=== PATIENT | male | born 1960 | race Two or more races ===

== ENCOUNTER → 2023-11-16 | Outpatient (CLI) | payer MEDICARE, MEDICAID, SELFPAY | END | disposition home or self-care (01) | PROVIDERS: PCP Family Medicine; Referring Provider Family Medicine; Visit Provider Family Medicine | DX: Z20.1 Contact with and (suspected) exposure to tuberculosis (principal) ==

== ENCOUNTER → 2024-04-09 | Outpatient (CLI) | payer MEDICARE, MEDICAID, SELFPAY ==
--- NOTE | 2024-04-09 12:30 | XR_ITS ---
Examination: Abdomen sonogram, complete Date and time of exam: April 09, 2024 1319 hrs. Indications: Abdominal pain beginning 3 weeks ago. Technique: Multiple real-time grayscale transabdominal sonographic images of the abdomen have been obtained. Findings: Normal gallbladder Normal common bile duct 0.6 cm no stones Pancreatic head 2.8 cm Mid and distal aorta visualized not enlarged Fatty liver 14.2 cm no focal liver lesions Normal hepatopedal portal venous flow IVC obscured by bowel gas Right kidney 12.5 x 6.5 x 6.1 cm cortex 2.3 cm Left kidney 12.5 x 2.9 x 5.3 cm cortex 2.5 cm Moderate bilateral renal parenchymal scar reformation Lobulation versus renal mass in the mid to lower pole left kidney 3.5 x 3.4 cm Spleen 10.2 cm Impression: Normal gallbladder Negative for common bile duct stones Findings liver Recommend CT scan abdomen kidneys post intravenous contrast to exclude mass in the mid to lower pole left kidney
== END | disposition home or self-care (01) ==
LOC: CDIM 12:44
PROVIDERS: PCP Family Medicine; Referring Provider Family Medicine; Visit Provider Family Medicine
DX: N28.89 Other specified disorders of kidney and ureter (principal)
CPT/HCPCS: 76700

== ENCOUNTER → 2024-04-17 | Outpatient (CLI) | payer MEDICARE, SELFPAY ==
[2024-04-17 11:34] LABS: Glucose Estimated Average 117 mg/dL (80-131); Hemoglobin A1C 5.7 % Hgb (4.8-6.0)
[2024-04-17 11:44] LABS: Creatinine MALB Rnd Ur 71 mg/dL (30-125); Microalbumin, Random Urine < 3 mg/L (0-300)
[2024-04-17 11:55] LABS: Alanine Aminotransferase 24 U/L (10-49); Albumin, Serum 4.5 gm/dL (3.4-4.8); Alkaline Phosphatase 84 U/L (46-116); Anion Gap 7 (7-16); Aspartate Amino Transferase 28 U/L (0-34); BUN/Creatinine Ratio 10 Ratio (12-20); Bilirubin,Direct 0.2 mg/dL (0.0-0.3); Bilirubin,Total 0.6 mg/dL (0.3-1.2); Blood Urea Nitrogen 9 mg/dL (9-23); Calcium 9.5 mg/dL (8.3-10.6); Carbon Dioxide 29.6 mMol/L (20.0-31.0); Cardiac Risk Estimate 3.3 RATIO (4.0-6.7); Chloride 107 mMol/L (98-107); Cholesterol 179 mg/dL (132-200); Creatinine (Component) 0.9 mg/dL (0.6-1.3); Glucose 108 mg/dL (74-106); HDL Cholesterol 54 mg/dL (40-60); LDL Cholesterol,Calculated 96 mg/dL (0-130); Osmolality,Calculated 286 (275-295); Potassium 4.9 mMol/L (3.4-5.1); Sodium 144 mMol/L (136-145); Total Protein 7.4 gm/dL (5.7-8.2); Triglycerides 143 mg/dL (30-150); eGFR > 60 See Note
== END | disposition home or self-care (01) ==
LOC: COPL 09:57
PROVIDERS: PCP Family Medicine; Referring Provider Family Medicine; Visit Provider Family Medicine
DX: E11.9 Type 2 diabetes mellitus without complications (principal); E78.1 Pure hyperglyceridemia
CPT/HCPCS: 36415; 80048; 80061; 80076; 82043; 82570; 83036

== ENCOUNTER → 2024-04-29 | Outpatient (CLI) | payer MEDICARE, MEDICAID, SELFPAY ==
--- NOTE | 2024-04-29 16:30 | XR_ITS ---
Examination: CT abdomen with intravenous contrast. Coronal 2-D reconstructions. Sagittal 2-D reconstructions. Date and time of exam:April 29, 2024 1624 hours INDICATIONS: Generalized abdominal pain, abdomen sonogram April 09, 2024 lobulation versus renal mass mid to lower pole left kidney 3.5 cm CTDI: vol (mGy): 8.69 DLP: (mGycm): 337 Technique: Axial images of the abdomen have been obtained, 3 mm slice thickness, 60 cc [id number] 2-D sagittal coronal reconstructions Low dose protocols were performed. One or more of the following dose reduction techniques were used; automated exposure control, adjustment of the mA and/or KV according to patient size, use of iterative reconstruction technique. Findings: Fatty infiltration throughout the liver No gallstones Spleen not enlarged No pancreatic or adrenal mass No solid renal mass lesion noted Aorta normal size No bowel obstruction Normal appendix No diverticulitis IMPRESSION: No solid renal mass lesion noted Recommend 6 month follow-up renal sonography
== END | disposition home or self-care (01) ==
LOC: CCTX 15:49
PROVIDERS: Referring Provider Family Medicine; Visit Provider Family Medicine
DX: R10.13 Epigastric pain (principal)
CPT/HCPCS: 74160; A4649; Q9967